=== PATIENT | female | born 1950 | race Caucasian/White ===

== ENCOUNTER 2018-11-26 12:37 | Outpatient (CLI) | payer MEDICARE ==
[2018-11-26] MEDS ORDERED: LOVA40TA2 PO (13:19)
[2018-11-26] MEDS ORDERED: ERGO500017 PO (13:19)
[2018-11-26 14:03] LABS: ANION GAP 3 mmol/L (5-15); CALCIUM 9.1 mg/dL (8.5-10.1); CHLORIDE 105 mmol/L (98-107); CREATININE 0.72 mg/dL (0.55-1.02)
[2018-11-26 14:24] LABS: BASOPHILS # (AUTO) 0.06 x10^3/uL (0-0.1); BASOPHILS % (AUTO) 1 % (0-1); EOSINOPHILS # (AUTO) 0.13 x10^3/uL (0-0.4); EOSINOPHILS % (AUTO) 2 % (1-7); LYMPHOCYTES # (AUTO) 1.89 x10^3/uL (1-3.4); LYMPHOCYTES % (AUTO) 24 % (22-44); MD NO; MEAN CORPUSCULAR HEMOGLOBIN 30.1 pg (27.0-34.8); MEAN CORPUSCULAR VOLUME 91.1 fL (80-100); MEAN PLATELET VOLUME 8.6 fL (7.4-10.4); MONOCYTES # (AUTO) 0.64 x10^3/uL (0.2-0.8); MONOCYTES % (AUTO) 8 % (2-9); NEUTROPHILS % (AUTO) 66 % (42-75); PLATELET COUNT 290 x10^3/uL (130-400); RED BLOOD COUNT 4.63 x10^6/uL (3.82-5.3); RED CELL DISTRIBUTION WIDTH 13.2 % (9.6-15.2)
== END 2018-11-26 23:59 | disposition home or self-care (01) ==
LOC: EDSEX 12:37 → STAR 12:37
PROVIDERS: ATTEND Obstetrics & Gynecology
DX: Z01.818 Encounter for other preprocedural examination (principal); N81.2 Incomplete uterovaginal prolapse
CPT/HCPCS: 36415; 71046; 80048; 85025; 93005

== ENCOUNTER 2018-12-07 07:09 | Day surgery (SDC) | payer MEDICARE ==
[~2018-12-07] VITALS: Ht 154.9 cm; Wt 60.5 kg
[~2018-12-07 07:09] MED LIST: BUPIVACAINE/PF 0.25% ONE; EPINEPHRINE 1 MG/ML, 1ML ONE; ERGO500017 PO; FLUORESCEIN SODIUM 500 MG/5 ML ONE; LOVA40TA2 PO
[2018-12-07 07:39] VITALS: BP 101/67
[2018-12-07] MEDS ORDERED: LACTATED RINGERS 1,000 ML IV SCH (07:43)
[2018-12-07] MEDS ORDERED: FENTANYL PF 250 MCG/5ML ONE (08:23)
[2018-12-07] MEDS ORDERED: MIDAZOLAM 1 MG/ML, 2ML ONE (08:23)
[2018-12-07] MEDS ORDERED: FAMOTIDINE 20 MG TABLET PO ONE (09:00)
[2018-12-07] MEDS ORDERED: hydrALAzine 20 MG/ML, 1ML IV PRN (09:00)
[2018-12-07] MEDS ORDERED: SCOPOLAMINE PATCH, 1.5MG PATCH.TD72 TD ONE ×2 (09:00→09:30)
[2018-12-07] MEDS ORDERED: PROMETHAZINE 25 MG/ML, 1ML IV PRN (09:00)
[2018-12-07] MEDS ORDERED: LABETALOL 5MG/ML, 20ML IV PRN (09:00)
[2018-12-07] MEDS ORDERED: GABAPENTIN 300 MG CAPSULE PO ONE (09:00)
[2018-12-07] MEDS ORDERED: ONDANSETRON 2MG/ML, 2ML IV PRN (09:00)
[2018-12-07] MEDS ORDERED: FENTANYL PF 100 MCG/2ML IV PRN (09:00)
[2018-12-07] MEDS ORDERED: ACETAMINOPHEN 500 MG TABLET PO ONE (09:00)
[2018-12-07] MEDS ORDERED: OxyconTIN ER 10 MG TAB.ER PO ONE (09:00)
[2018-12-07] MEDS ORDERED: MEPERIDINE/PF 25MG/0.5ML IVPush PRN (09:00)
[2018-12-07] MEDS ORDERED: EPINEPHRINE 1 MG/ML, 1ML ONE (09:19)
[2018-12-07] MEDS ORDERED: LIDOCAINE 1%-EPI 1:100K, 30ML ONE (09:19)
[2018-12-07] MEDS ORDERED: THROMBIN 5,000 UNIT VIAL TP ONE (09:19)
[2018-12-07] MEDS ORDERED: INDIGO CARMINE 0.8%, 5ML ONE (09:19)
[2018-12-07] MEDS ORDERED: BUPIVACAINE/PF 0.25% ONE (09:19)
[2018-12-07] MEDS ORDERED: NEOMY/POLYMYXIN B GU IRR. 1 ML ONE (09:19)
[2018-12-07] MEDS ORDERED: CEFAZOLIN 1,000 MG ONE (09:27)
[2018-12-07] MEDS ORDERED: LIDOCAINE 1%-EPI 1:100K, 30ML INFIL ONE (09:29)
[2018-12-07] MEDS ORDERED: HYDROmorphone 1 MG/ML, 1ML ONE ×2 (11:23→11:44)
[2018-12-07] MEDS ORDERED: OXYcodone 5 MG/5 ML ORAL.SOL UDC ONE ×2 (11:23→12:00)
[2018-12-07] MEDS: OXYcodone 5 MG/5 ML ORAL.SOL UDC PO PRN ×3 (11:24→17:09)
[2018-12-07] MEDS: HYDROmorphone 2 MG/ML, 1ML IVPush PRN ×2 (11:26→11:36)
[2018-12-07] MEDS ORDERED: ONDANSETRON 2MG/ML, 2ML ONE (11:39)
[2018-12-07] MEDS ORDERED: DEXAMETHASONE 4 MG/ML, 5ML ONE (11:39)
[2018-12-07] MEDS ORDERED: PROPOFOL 10 MG/ML, 20ML ONE (11:39)
[2018-12-07] MEDS ORDERED: ROCURONIUM 10MG/ML,5ML ONE (11:39)
[2018-12-07] MEDS ORDERED: KETOROLAC 30 MG/1 ML IVPush ONE (11:41)
[2018-12-07] MEDS ORDERED: KETOROLAC 30 MG/1 ML ONE (11:43)
[2018-12-07] MEDS ORDERED: MEPERIDINE/PF 25MG/ML,1ML ONE (11:43)
== END 2018-12-07 18:50 | disposition home or self-care (01) ==
LOC: EDSEX → OUT 07:09
PROVIDERS: ATTEND Obstetrics & Gynecology
DX: N81.4 Uterovaginal prolapse, unspecified (principal); E78.00 Pure hypercholesterolemia, unspecified; Z88.0 Allergy status to penicillin
CPT/HCPCS: 58270; 88307; J0690; J1100; J1170; J1885; J2175; J2250; J2405; J2704; J3010; J3490; J0171